=== PATIENT | male | born 1985 | race Caucasian/White ===

== ENCOUNTER 2024-02-04 19:14 | Emergency (ER) | payer SELFPAY ==
[2024-02-04 19:18] VITALS: BP 118/79; PULSE 81; TEMP 36.8; O2SAT 99; BMI 23.5
--- NOTE | 2024-02-04 19:27 | PC.NURSE ---
selling observed to left lower extremity from knee to toes, skin color wnl and warm to touch with less then 3 sec cap refill. pt able to move at all joints
--- NOTE | 2024-02-04 19:41 | ED.EXTPRO1 ---
HPI - Extremity Problem General Chief complaint: Extremity Problem, Nontraumatic Stated complaint: Post Surgical Complications Time Seen by Provider: 02/04/24 19:37 Source: patient Mode of arrival: walk-in History of Present Illness HPI Narrative: patient describes hydrocele surgery at [facility] last week. Discharged home with kessler in place 02/01/24. On the noticed some swelling of his leg and now has more swelling of the left leg. No pain. No chest pain or shortness of breath. No fever. otherwise feels well Related Data Allergies Allergy/AdvReac Type Severity Reaction Status Date / Time No Known Drug Allergies Allergy Verified 02/04/24 19:22 Review of Systems ROS Status of ROS 10 or more systems reviewed and unremarkable except as noted in history and below Exam Constitutional Vital Signs, click to edit/add: Last Vital Signs Temp 98.2 F 02/04/24 19:18 Pulse 81 02/04/24 19:18 Resp 18 02/04/24 19:18 BP 118/79 02/04/24 19:18 Pulse Ox 99 02/04/24 19:18 O2 Del Method Room Air 02/04/24 19:18 Common normals: no apparent distress, average body habitus, oriented x3, no limitations, healthy appearing, alert and well nourished [facility] Common normals: normocephalic and head/scalp atraumatic Eye Common normals: EOMs intact bilaterally and conjunctivae normal Respiratory Common normals: normal respiratory effort, no retractions, no use of accessory muscles and clear to auscultation bilaterally Cardio Common normals: regular rate, regular rhythm, S1 normal heart sound and S2 normal heart sound GI Common normals: Normal to inspection, nondistended, normoactive bowel sounds present, soft to palpation and non-tender Other: scrotal surgical incisions look clean. packing in place and dry. no swelling of the scrotum Extremity Common normals: full ROM Other: 2+ edema left lower ext below knee. Nontender. Neg Garcia's sign trace -1+ edema(pitting) RLE both legs nontender. No erythema no tenderness of the gastroc Neuro Common normals: oriented x3, CN's II-XII intact bilaterally, moves all extremities and no focal motor deficits Psych Appearance: grossly normal Course Vital Signs Vital signs: Vital Signs Temperature 98.2 F 02/04/24 19:18 Pulse Rate 81 02/04/24 19:18 Respiratory Rate 18 02/04/24 19:18 Blood Pressure 118/79 02/04/24 19:18 Pulse Oximetry 99 02/04/24 19:18 Oxygen Delivery Method Room Air 02/04/24 19:18 Temperature 98.2 F 02/04/24 19:18 Pulse Rate 81 02/04/24 19:18 Respiratory Rate 18 02/04/24 19:18 Blood Pressure 118/79 02/04/24 19:18 Pulse Oximetry 99 02/04/24 19:18 Oxygen Delivery Method Room Air 02/04/24 19:18 MDM - Extremity (Nontraumatic) MDM Narrative Medical decision making narrative: patient s/p hydrocele repair last week. Now has swelling of both lower extremities. L>R. pitting edema. No sign of cellulitis. legs are nontender. Clinically low suspicion for DVT. d-dimer is positive. Discussed with partition assembler urology for safety to administer Lovenox post surgery until Doppler can be performed. spoke with partition assembler Urology at [facility] and cleared to administer Lovenox. Patient given dose IM. Discharged home for out patient doppler study as ultrasound not available at this time Lab Data Labs: Lab Results 02/04/24 Range/Units 19:58 WBC 14.4 H (4.0-11.0) 10^3/uL RBC 2.83 L (4.70-6.10) 10^6/uL Hgb 7.8 L (14.0-18.0) g/dL Hct 27.0 L (42.0-54.0) % MCV 95.4 H (80.0-94.0) fL MCH 27.6 (25.9-34.0) pg MCHC 28.9 L (29.9-35.2) g/dL RDW 20.7 H (11.0-15.0) % Plt Count 335 (150-450) 10^3/uL MPV 9.7 (9.5-13.5) fL Neut % (Auto) 79.7 H (43.0-75.0) % Lymph % (Auto) 14.3 L (20.5-60.0) % [place] % (Auto) 4.4 (1.7-12.0) % Eos % (Auto) 0.1 L (0.9-7.0) % Baso % (Auto) 1.0 (0.2-2.0) % Neut # (Auto) 11.5 H (1.4-6.5) 10^3/uL Lymph # (Auto) 2.1 (1.2-3.8) 10^3/uL [place] # (Auto) 0.6 (0.3-0.8) 10^3/uL Eos # (Auto) 0.0 (0.0-0.7) 10^3/uL Baso # (Auto) 0.1 (0.0-0.1) 10^3/uL Abs Immat Gran (auto) 0.07 H (0.00-0.03) 10^3/uL Imm/Tot Granulo (auto) 0.5 (0.0-0.5) % D-Dimer 1.32 H* (<=0.59) mg/L FEU Sodium 140 (136-145) mmol/L Potassium 4.2 (3.5-5.1) mmol/L Chloride 110 H (98-107) mmol/L Carbon Dioxide 24.4 (21.0-32.0) mmol/L Anion Gap 9.8 BUN 11.0 (7.0-18.0) mg/dL Creatinine 1.19 (0.70-1.30) mg/dL Est GFR ( Amer) >60 (>=60) Est GFR (Non-Af Amer) >60 (>=60) BUN/Creatinine Ratio 9.2 Glucose 87 (74-106) mg/dL Calcium 8.1 L (8.5-10.1) mg/dL Total Bilirubin 0.5 (0.2-1.0) mg/dL AST 50 H (15-37) U/L ALT 22 (16-63) U/L Alkaline Phosphatase 135 H (46-116) U/L Total Protein 5.8 L (6.4-8.2) g/dL Albumin 1.8 L (3.4-5.0) g/dL Globulin 4.0 g/dL Albumin/Globulin Ratio 0.5 Discharge Plan Discharge Stand Alone Forms: Portal Instructions Chief Complaint: Extremity Problem, Nontraumatic Clinical Impression: Lower extremity edema Patient Disposition: Home, Self-Care Print Language: Icelandic Instructions: Leg Edema (ED) Additional Instructions: return Tuesday for ultrasound of your leg. Referrals: [facility] [Primary Care Provider] - 1 week
[2024-02-04 20:10] LABS: Basophils Absolute Auto 0.1 10^3/uL (0.0-0.1); Eosinophils Percent Auto 0.1 % (0.9-7.0); Hemoglobin 7.8 g/dL (14.0-18.0); Immature Granulocytes Abs Auto 0.07 10^3/uL (0.00-0.03); Immature Granulocytes Pct Auto 0.5 % (0.0-0.5); Lymphocytes Absolute Auto 2.1 10^3/uL (1.2-3.8); Lymphocytes Percent Auto 14.3 % (20.5-60.0); Mean Corpuscular HGB Conc 28.9 g/dL (29.9-35.2); Mean Corpuscular Hemoglobin 27.6 pg (25.9-34.0); Mean Corpuscular Volume 95.4 fL (80.0-94.0); Mean Platelet Volume 9.7 fL (9.5-13.5); Monocytes Absolute Auto 0.6 10^3/uL (0.3-0.8); Monocytes Percent Auto 4.4 % (1.7-12.0); Neutrophils Absolute Auto 11.5 10^3/uL (1.4-6.5); Neutrophils Percent Auto 79.7 % (43.0-75.0); Platelet Count 335 10^3/uL (150-450); Red Blood Count 2.83 10^6/uL (4.70-6.10); Red Cell Distribution Width 20.7 % (11.0-15.0); White Blood Count 14.4 10^3/uL (4.0-11.0)
[2024-02-04 20:30] LABS: Alanine Aminotransferase 22 U/L (16-63); Albumin Globulin Ratio 0.5; Albumin Level 1.8 g/dL (3.4-5.0); Alkaline Phosphatase 135 U/L (46-116); Anion Gap 9.8; Aspartate Amino Transferase 50 U/L (15-37); BUN Creatinine Ratio 9.2; Bilirubin Total 0.5 mg/dL (0.2-1.0); Calcium 8.1 mg/dL (8.5-10.1); Carbon Dioxide 24.4 mmol/L (21.0-32.0); Chloride 110 mmol/L (98-107); Estimated GFR (African America >60 (>=60); Estimated GFR (Non-African Ame >60 (>=60); Glucose 87 mg/dL (74-106); Potassium 4.2 mmol/L (3.5-5.1); Sodium 140 mmol/L (136-145); Total Protein 5.8 g/dL (6.4-8.2)
[2024-02-04 20:31] LABS: D Dimer 1.32 mg/L FEU (<=0.59)
--- NOTE | 2024-02-04 22:05 | PC.NURSE ---
This nurse messaged ED animal shelter supervisor, Rebeca Hensley, about sending home Lovenox shot with pt instead of writing a prescription for pt due to only needed a shot tomorrow. Rebeca states that this nurse should speak with neon glass blower pharmacist for approval or suggestion. Sharee, neon glass blower pharmacist called and spoke with this nurse and states that this nurse is able to send home Lovenox shot with pt for tomorrow and to just note in SEP that shot was sent home for pt to self administer. Physician notified.
[2024-02-04] MEDS: ENOXAPARIN SODIUM 100 MG/ML SYRINGE SUBQ ×2 (22:22→22:49)
== END 2024-02-04 22:53 | disposition home or self-care (01) ==
PROVIDERS: Emergency Provider Internal Medicine
DX: R60.0 Localized edema (principal); R79.89 Other specified abnormal findings of blood chemistry; Z98.890 Other specified postprocedural states
CPT/HCPCS: 36415; 80053; 85025; 85378; 96372; 99284; J1650

== ENCOUNTER 2024-02-06 09:17 | Outpatient (OUT) | payer SELFPAY ==
--- NOTE | 2024-02-06 09:29 | US_ITS ---
[place] [id number] Patient Name: ADIN CHILD MRN: [id number] date: 1985 Sex: M Assigned Patient Location: [facility] Current Patient Location: [facility] Accession/Order Number: [id number] Exam Date: 02/06/2024 09:30 Report Date: 02/06/2024 11:14 At the request of: DARIELA DOW Procedure: US venous doppler LE LT EXAM: US venous doppler LE LT HISTORY: Deep Vein Thrombosis COMPARISON: None. TECHNIQUE: Grayscale, color and Doppler FINDINGS: Region: Left leg Thrombus: None Flow: Normal Compressibility: Normal Augmentation: Normal Other: Moderate subcutaneous edema of the calf US/US venous doppler LE LT IMPRESSION: No deep or superficial vein thrombus identified in the left leg Electronically authenticated by: SANTOSH SERVIN Date: 02/06/2024 11:14
== END 2024-02-06 09:18 | disposition home or self-care (01) ==
LOC: RAD 09:19
PROVIDERS: Visit Provider Internal Medicine
DX: I82.402 Acute embolism and thrombosis of unspecified deep veins of left lower extremity (principal)
CPT/HCPCS: 93971